=== PATIENT | female | born 1990 | race Caucasian/White ===

== ENCOUNTER 2021-12-12 06:17 | Inpatient (IN) ==
--- NOTE | 2021-12-02 16:17 | History and Physical Report ---
DATE OF NOTE: 12/02/2021. CHIEF COMPLAINT: Heavy vaginal bleeding with clotting, pelvic pain, severe dyspareunia. HISTORY OF PRESENT ILLNESS: The patient is a 31-year-old 3, para 3. She had a tubal ligatio n in 2014 for control. She has a history of heavy vaginal bleeding. Her periods come every 28 -30 days, they last 6+ days. She has heavy bleeding 5 days. During the heavy bleeding, she can soak a pad in under an hour or even soak 2 pads in under an hour and she has severe clotting. She also h as severe cramps with her period. They started just the days when she was having the bleeding, now s he gets a cramp several days before her period starts or several days after. The pain has been unresp onsive to nonnarcotic pain relievers. Due to the heavy bleeding and severe pelvic pain, she has miss ed numerous days of work, has difficulty leaving the house when she is bleeding due to the soaking th rough her pad. This has been present and getting worse for the past 6 months. She also has pain wit h intercourse, specifically pain on deep penetration. This has also been present for over 6 months, been getting increasingly worse and it is to the point where it causes her to avoid having intercours e due to the pain. She had a transvaginal ultrasound on 05/25/2021, it showed normal size ovaries, t hickened endometrial stripe. In 2019, she had a diagnostic laparoscopy, which revealed biopsy proven endometriosis, particularly on the right uterosacral ligament. Presently has been scheduled for tota l abdominal hysterectomy with preservation of both ovaries and suspension of the vaginal cuff. PAST MEDICAL HISTORY: She has 3 children in good health. ALLERGIES: ALLERGIC TO SULFA, WHICH GIVES HER HIVES. PAST SURGICAL HISTORY: She had a stat in 2019, she had tubal ligation in 2014 and she had a diagnostic laparoscopic D and C in 2019 which revealed endometriosis. SOCIAL HISTORY: She is a half a pack a day smoker for 18 years. No history of excessive alcohol int guillermo. She works at [employer]. FAMILY HISTORY: Her mom is 61, has elevated cholesterol. Father is 60, has thyroid disease and diab etes. She has 2 sisters in good health. REVIEW OF SYSTEMS: HEAD: No symptoms of frequent or severe headaches. EYES: No symptoms of blurred vision or double vision. EARS: No symptoms of frequent ear infection or difficulty hearing. NOSE: No symptoms of frequent nosebleeds or difficulty breathing through her nose. PHYSICAL EXAMINATION: GENERAL: Well-developed, well-nourished 31-year-old white female, alert, oriented x3, and cooperativ e, in no acute distress, appeared her stated age. EYES: Conjunctivae pink. Sclerae white, no evidence of jaundice. ENT: Ears had normal light reflex bilaterally. Nose had normal mucosa. Septum is midline. There w ere no polyps. Throat had no erythema or evidence of infection. Teeth are in good state of repair. HEAD: Normocephalic, normal distribution of hair. NECK: Supple. Trachea midline. Thyroid is not enlarged. There is no adenopathy appreciated. Both carotids are of good intensity. BREASTS: Normal. HEART: Had a regular rhythm. S1 and S2 are normal. There was an umbilical ring and she also had a well-healed Pfannenstiel scar. PELVIC: Revealed a normal-appearing cervix. Uterus was anteverted, top normal size. There were no adnexal masses appreciated. There was tenderness and nodularity of the uterosacral ligaments, especi ally on the patient's right side. MUSCULOSKELETAL: Revealed no calf tenderness. IMPRESSION OF THIS CASE: History of emergency for distress. History of tubal ligati on for control. Diagnostic laparoscopy revealing symptomatic endometriosis, hypermenorrhea and dyspareunia. Job ID: [id number]
--- NOTE | 2021-12-04 10:28 | PAT Medication Instructions ---
Medication Instructions Date of Service December 04, 2021 Home Medications Medication Instructions Recorded sumatriptan succinate 100 mg 100 mg PO .COMPLEX PRN #9 tab 05/19/21 tablet (Imitrex) sumatriptan succinate 100 mg tablet (Imitrex) 100 mg PO .COMPLEX PRN norethindrone acetate 5 mg tablet 5 mg PO QAM ASK your surgeon for instructions norethindrone acetate 5 mg tablet 5 mg PO QAM Take morning of surgery With a small sip of water, OTHERWISE NOTHING TO EAT OR DRINK AFTER MIDNIGHT: sumatriptan succinate 100 mg tablet (Imitrex) 100 mg PO .COMPLEX PRN (if needed) Take evening before surgery sumatriptan succinate 100 mg tablet (Imitrex) 100 mg PO .COMPLEX PRN (if needed) Other Notes If you have any questions please call us at [phone] or [phone] or [phone] or [phone]
--- NOTE | 2021-12-10 09:48 | Anesthesiology Consultation ---
Date of Service December 10, 2021 Assessment & Plan (1) Encounter for pre-operative examination: Chart Review Chart Review: Acceptable Risk for Surgery (pending preop Covid testing results ) and Patient seen in Pre Admission Testing -Pt had test done at [facility] appt on 12/10/21 = negative Per [facility] appt on 12/10/21, patient denies any recent travel or large group activities. No known Covid positive exposures or Covid related symptoms. No known Covid infection in the past 90 days. Pt is vaccinated for Covid. Preop Covid testing done at [facility] on 12/10/21= will await results. Educated on importance of self quarantining, social distancing and wearing mask in public for the patient one week prior to surgery and after Covid testing done Diagnostic laparoscopy 08/24/19= Done under [place] with Grade 1 view with MAC#3. ETT #6.5. Atraumatic x 1 Teaching & Discussion Pre-Anesthesia Teaching/Discussion Notes: Instructed NPO after midnight before surgery,except medications with 15 cc of water. Medication instructions provided according to the [facility] guidelines. History Surgery Operation Date: 12/12/21 12:00 Proposed Procedures p Total Abdominal Hysterectomy - Harvinder Sunshine MD Height/Weight Height: 5 ft 6 in Weight: 63.4 kg Allergies Allergy/AdvReac Type Severity Reaction Status Date / Time Sulfa (Sulfonamide Allergy Unknown HIVES TO Verified 12/02/21 16:34 Antibiotics) "SULFA DRUGS" Medications Home Medications Medication Instructions Recorded Confirmed Last Taken sumatriptan succinate 100 mg 100 mg PO .COMPLEX PRN #9 tab 05/19/21 12/02/21 Unknown tablet (Imitrex) norethindrone acetate 5 mg tablet 5 mg PO QAM 10/03/21 12/02/21 10/01/21 Past Medical History Medical History Depression No meds, patient reports well managed. Endometriosis GERD (gastroesophageal reflux disease) Well controlled, denies any issues laying flat History of COVID-19 11/2020; asymptomatic Migraine HX Neck pain Patient reports h/o herniated disc, denies cervicalgia since established care with chiropractor. Exercise / Class Metabolic Activity II 4-5 Yardwork/Stairs/Walk up hill (one flight of stairs - no chest pain or SOB ) Past Family History Family History Father Diabetes Hypothyroidism Mother Hypertension Dyslipidemia Past Surgical History Surgical History History of bilateral tubal ligation History of section History of laparoscopy Past Anesthesia History No Hx of Anesthesia Complications and No Family Hx of Anesthesia Complications History of PONV No Hx of PONV and No Hx of Motion Sickness Social History Smoking Status: Current every day smoker tobacco type: cigarettes Smoking cigarettes per day: 10-20 per day Do You Dip or Chew Tobacco: No Hx Alcohol Use: Yes Alcohol type: beer alcohol intake frequency: a few times a month Hx Substance Use: No substance use type: does not use Review of Systems Hx of snoring- no noted apnea- no hx of sleep study Patient denies chest pain, shortness of breath, dyspnea on exertion, cough, wheezing, palpitations. No hx of seizures, stroke, [place]. No hx of blood clots or blood transfusions Physical Exam Vital Signs VITALS BP 108/62 (manually) P 77 TEMP 98.2 SP02 95% RESP 16 Constitutional no acute distress ENMT Mouth: no TMJ clicking Thyromental Distance: < 3.5 Finger Breadths (3.0) Mallampati Class: I (smaller airway ) Metal bar to bottom front teeth Neck neck extension not limited Respiratory normal respiratory effort; no respiratory distress Auscultation: lungs clear to auscultation bilaterally; no wheezes Cardiovascular Rate/Rhythm: regular rate and regular rhythm Heart Sounds: no murmur Vessels: no carotid bruit Musculoskeletal Spine: no pain with cervical ROM Extremities: extremities normal to inspection Psychiatric Orientation: alert Lab Results Anesthesia Preop Results Results Anesthesia Widget: WBC 5.64 K/uL (4.8-10.8) 12/10/21 Hgb 14.1 g/dL (12.0-16.0) 12/10/21 Hct 41.7 % (37-47) 12/10/21 Plt 262 K/uL (130-400) 12/10/21 Na 139 mmol/L (136-145) 12/10/21 K 4.0 mmol/L (3.5-5.1) 12/10/21 Cl 105 mmol/L (98-107) 12/10/21 CO2 31 mmol/L (21-32) 12/10/21 BUN 11 mg/dl (6-23) 12/10/21 Creat 0.66 mg/dl (0.6-1.2) 12/10/21 Glucose Level 56 mg/dl (70-99(Fasting)) L 12/10/21 PT 10.7 Seconds (9.0-12.0) 12/10/21 PTT 27.3 Seconds (21.0-31.0) 12/10/21 INR 1.0 (0.9-1.1) 12/10/21 Urine Test Negative (Negative) 12/10/21 Blood Type A Positive 12/10/21 Antibody Screen NEGATIVE 12/10/21 Testing Other Testing Cervical CT scan 05/16/21= No acute bony abnormality is seen involving the cervical spine. There is no CT evidence of central canal stenosis or significant neural foraminal narrowing.
[~2021-12-12 06:17] MED LIST: LR 15ML/HR IV SCH; cefOXitin 2,000 MG in DEXTROSE 5% 50 ML IV SCH
[2021-12-12] MEDS ORDERED: DEXAMETHASONE SOD INJ 4 MG/ML VIAL ONE (06:56)
[2021-12-12] MEDS ORDERED: LIDOCAINE 2% 2 ML VIAL/AMP(20MG/ML) INFIL ONE (06:56)
[2021-12-12] MEDS ORDERED: ONDANSETRON INJ 2 MG/ML 2 ML VIAL ONE ×2 (06:56→10:04)
[2021-12-12] MEDS ORDERED: fentaNYL citrate 100 MCG/2 ML VIAL ONE (06:56)
[2021-12-12] MEDS ORDERED: ROCURONIUM BROMIDE 10 MG/ML 5 ML VIAL IV ONE ×2 (06:56→09:37)
[2021-12-12] MEDS ORDERED: MIDAZOLAM HCL 1 MG/ML 2ML VIAL ONE (06:56)
[2021-12-12] MEDS ORDERED: PROPOFOL IV EMULSION 10 MG/ML 20 ML VIAL IV ONE (06:56)
[2021-12-12] MEDS ORDERED: BUPIVACAINE 0.5 % 5 MG/1 ML PF 10ML VIAL ONE (07:05)
[2021-12-12] MEDS ORDERED: MoRPHine SULFATE PF 1 MG/ML 10 ML AMP/VIAL ONE (07:37)
[2021-12-12] MEDS ORDERED: SCOPOLAMINE 1 MG TDSY TD ONE (07:38)
--- NOTE | 2021-12-12 07:42 | History & Physical Bridge Note ---
Date of Service December 12, 2021 History & Physical Bridge Note I have examined the patient, reviewed the History & Physical and in the interval since the performance of the History & Physical I have noted the following changes of clinical significance: no changes noted
[2021-12-12] MEDS ORDERED: MoRPHine SULFATE PF 1 MG/ML 10 ML AMP/VIAL INT SPINAL ONE (08:04)
[2021-12-12] MEDS ORDERED: NALOXONE HCL 0.4 MG/1 ML VIAL/CARP IV PRN (08:04)
[2021-12-12] MEDS ORDERED: ePHEDrine sulfate 50 MG/ML AMP IV PRN ×2 (08:04→10:51)
[2021-12-12] MEDS ORDERED: ONDANSETRON INJ 2 MG/ML 2 ML VIAL IV PRN ×2 (08:04→10:51)
[2021-12-12] MEDS ORDERED: NALOXONE HCL 1 MG in SODIUM CHLORIDE 0.9% 1000ML 1,000 ML IV PRN (08:04)
[2021-12-12] MEDS ORDERED: diphenhydrAMINE 50 MG/ML VIAL IV PRN (08:04)
[2021-12-12] MEDS ORDERED: NALBUPHINE HCL INJ 10 MG/ML AMP IV PRN (08:04)
[2021-12-12] MEDS ORDERED: NALOXONE HCL 0.08 MG in SYRINGE 1.8 ML IV PRN (08:04)
[2021-12-12] MEDS ORDERED: LACTATED RINGER'S 500 ML IV PRN (08:04)
[2021-12-12] MEDS ORDERED: HEPARIN (PORCINE) 1000 UNIT/ML 10 ML (CATH LAB USE ONLY) ONE (08:05)
[2021-12-12] MEDS ORDERED: DC INTRASPINAL MORPHINE SCH (08:15)
[2021-12-12] MEDS ORDERED: SODIUM CHLORIDE 0.9% 1000ML 1,000 ML IV SCH (08:15)
[2021-12-12] MEDS ORDERED: NO NARCOTICS OR SEDATIVES SCH (08:15)
[2021-12-12] MEDS ORDERED: KETAMINE 50 MG/5 ML SYRINGE ONE (08:54)
[2021-12-12] MEDS ORDERED: KETOROLAC 30 MG/ML VIAL ONE (10:04)
[2021-12-12] MEDS ORDERED: NEOSTIGMINE METHYLSULFATE 1 MG/ML 10ML VIAL ONE (10:20)
[2021-12-12] MEDS ORDERED: GLYCOPYRROLATE 0.2 MG/ML VIAL ONE (10:20)
--- NOTE | 2021-12-12 10:30 | Post Operative Brief Note ---
Immediate Post Op Note v1 Date of Surgery December 12, 2021 Pre & Post Diagnosis Operation Date: 12/12/21 08:00 Pre-Op Diagnosis: symptomatic endometriosis, hypermenorrhea and dyspareunia Post-Op Diagnosis: symptomatic endometriosis, hypermenorrhea and dyspareunia I identified the patient and participated in the time-out.: Yes Procedure Operation Date: 12/12/21 08:00 Actual Procedures p Total Abdominal Hysterectomy(Not Applicable) - Harvinder Sunshine MD suspension of vaginal cuff Surgeon Harvinder Sunshine MD Grounds Crew Supervisor none Estimated Blood Loss 150 Findings Consistent with Post-Op Diagnosis Drains Mercer Catheter and Justus Drain (1 justus drain and 1 safety pin remains in patient per surgeon.) Anesthesia Type General/Epidural Complications none Disposition Disposition: Recovery Room
[2021-12-12] MEDS ORDERED: ATROPINE SULFATE 0.1 MG/ML 10ML SYR IV PRN (10:51)
[2021-12-12] MEDS ORDERED: ACETAMINOPHEN 1000 MG/100 ML IV IV ONE (10:52)
[2021-12-12] MEDS ORDERED: ACETAMINOPHEN 1,000 MG/100 ML VIAL IV STA (10:53)
[2021-12-12] MEDS: HYDROmorphone INJ 1 MG/ML SYRINGE IV PRN ×2 (10:54→11:06)
[2021-12-12] MEDS: fentaNYL citrate 100 MCG/2 ML VIAL IV PRN ×3 (11:11→11:24)
--- NOTE | 2021-12-12 12:23 | Anesthesiology Progress Note ---
Date of Service December 12, 2021 Anesthesia Post Procedure Vital Signs Vital Signs: Temp Pulse Pulse Resp BP BP Pulse Ox 12/12/21 12:00 60 14 116/69 94 12/12/21 11:50 61 15 129/66 94 12/12/21 11:40 36.6 C 65 12 117/58 L 95 12/12/21 11:30 56 L 13 119/65 100 12/12/21 11:20 49 L 14 131/74 100 12/12/21 11:10 49 L 12 129/67 100 12/12/21 11:00 48 L 16 129/64 100 12/12/21 10:50 48 L 15 118/79 100 12/12/21 10:41 36.2 C L 64 16 123/66 100 12/12/21 06:57 36.9 C 66 18 114/58 L 98 Pain Intensity Lower Abdomen: Pain Intensity: 3 Transfer of Care Handoff Completed per policy Notes Mental Status: alert / awake / arousable and participated in evaluation Patient Amnestic to Procedure: Yes Nausea / Vomiting: adequately controlled Pain: adequately controlled Airway Patency, RR, SpO2: stable & adequate BP & HR: stable & adequate Hydration State: stable & adequate Anesthetic Complications: no major complications apparent and Pt Satisfied with anesthetic care
--- NOTE | 2021-12-12 12:28 | Operative Report (OR) ---
PROCEDURE: Total abdominal hysterectomy, suspension of vaginal cuff. INDICATION FOR SURGERY: Hypermenorrhea, dyspareunia, pelvic pain, previous laparoscopic diagnosis of endometriosis. SURGEON: Carlos Sunshine MD ESTIMATED BLOOD LOSS: 150 mL. ANESTHESIA: General with spinal narcotics. CHIEF DATA OFFICER: assistant corporation counsel. OPERATIVE FINDING AND PROCEDURE: The patient was brought to the OR table, correctly identified by evin perdomo and conversation. General anesthesia was administered. Compression stockings were applied. T he vagina was prepped with a Betadine solution. Mercer catheter was inserted aseptically in the [facility] er, connected to gravity drainage. Lower abdomen was painted with an alcohol based sterilizing solut ion. A Pfannenstiel incision was made through a previous scar and was carried down to the anterior f ascia by sharp dissection. Hemostasis was secured by electrocauterization. Fascia was incised trans versely, from the underlying muscle by blunt and sharp dissection. Recti muscles were sepa rated in the midline, exposing the peritoneum, which was carefully raised and entered. An O'Torsten-O 'Tee self-retraining retractor was inserted into the incision and 5 laparotomy packs were used t o retract the intestines and provide adequate exposure of the pelvic cavity. The uterus was grasped with a double tooth tenaculum. The round ligaments on either side were suture ligated with a chromic gut tag and then beyond that they were ligated with a silk suture. They were grasped proximally wit daniel Lei and then they were cut. Incision was made above the vesicouterine fold and the bladder was advanced out of the operative field. The posterior leaves of the broad ligament were first punched through bluntly on the left side, and this isolated the ovarian ligament and tube. They were clamped proximally and distally, cut, and then the distal stumps were doubly ligated with a chromic gut tag and also tagged with a chromic. This was also done on the right side, clamping proximally and distal ly and doubly ligating the stumps. The bladder was advanced off the operative field. The uterine ve ssels were clamped at the upper portion of the cervix where the uterus and the cervix met, these were doubly clamped with a curved Fred, cut, and then doubly suture ligated with chromic gut suture. B ladder was continually advanced out of the field. A curved Fred was used to slide off the cardinal ligaments, cut with a stump, and ligate the cardinal ligaments and also religate the stump to the ut erine vessels. This was done in 2 steps because of the length of the cardinal ligament. Then I used an electrocautery to shell the cervix out and thus remove the specimen consisting of uterus and cerv ix. I then suture ligated the angles of the vaginal cuff to the stumps of the cardinal ligament on b oth the right and left side. I then approximated the vaginal mucosa front to back with a figure-of-e ight suture of chromic catgut on each side. The proximal bites were in the cardinal ligaments on eit her side and that approximated the vaginal mucosa and further supported the cuff to the stumps of the cardinal ligaments. The mid portion was then whipstitched open with a continuous chromic gut suture . I had a little bit of bleeding from underneath the bladder and I had to double suture the top part of it. I then placed a Dave drain with a safety pin into the cuff, I checked for hemostasis. I then grabbed the middle of the posterior cuff, and I did a reuqbj-my-jnudt suture of Vicryl, which ap proximated the uterosacral ligaments and added additional support to the cuff. Following this, I bro ught the round ligaments down and tied them into the stumps of the cardinal ligaments on either side. I then approximated the peritoneum bearing the stumps on either side, approximated the peritoneum b earing all the stumps on the right side to the middle and then started on the left side and went to t he middle and then tied the 2 sutures together. At this point in time, the peritoneum was carefully approximated. Hemostasis now was excellent. I washed everything out. There was no additional bleed ing. I placed the Dave drain in the cul-de-sac. I then carefully did an anatomical approximation after removing the 5 packs and the O'Torsten-O'Tee self-retaining retractor. I did visualize th e appendix at this time, it was normal. I then approximated the peritoneum with a continuous running chromic gut suture. I approximated the recti muscles with interrupted muqbxn-ty-oqmrx suture chromi c catgut. I approximated the fascia with a continuous interlocking suture of Vicryl on each side tie d in the midline. Subcutaneous was approximated with a running plain. The skin edges were approxima sia with staple clips. The patient tolerated the procedure well and left the OR in good condition. Job ID: [id number]
[2021-12-12] MEDS ORDERED: bisacodyL 10 MG SUPP PR PRN (12:46)
[2021-12-12] MEDS ORDERED: SENNA 8.6 MG TAB PO PRN (12:46)
[2021-12-12] MEDS: HYDROmorphone INJ 0.5 MG/0.5 ML SYR IV PRN ×2 (15:48→20:30)
[2021-12-12] MEDS: D5W AND LACTATED RINGERS 1,000 ML IV SCH (20:30)
[2021-12-13] MEDS: HYDROmorphone INJ 0.5 MG/0.5 ML SYR IV PRN (01:32)
[2021-12-13] MEDS ORDERED: MEPERIDINE HCL 50 MG/ML CARP IV PRN (02:04)
[2021-12-13] MEDS: D5W AND LACTATED RINGERS 1,000 ML IV SCH (04:17)
[2021-12-13] MEDS: KETOROLAC 30 MG/ML VIAL IV PRN ×2 (04:22→11:03)
[2021-12-13 06:28] LABS: Hematocrit (blood only) 34.1 % (37-47); Hemoglobin 11.7 g/dL (12.0-16.0)
[2021-12-13] MEDS: MAGNESIUM HYDROXIDE SUSP 30 ML UDC PO PRN (08:30)
--- NOTE | 2021-12-13 10:37 | Obstetrical Progress Note ---
Date of Service December 13, 2021 Assessment & Plan Admission and Anticipated Discharge Date Admission Date: December 12, 2021 Subjective abdomen soft and non tender passing flatus no calf tenderness bandage removed incision is clean and dry vaginal bleeding scant hgb 11.7 Results & Data ([facility]) Vital Signs (Past 12 Hours) Vital Signs Temp Pulse Resp BP Pulse Ox 12/13/21 07:35 36.9 C 52 L 16 102/63 100 12/13/21 03:22 36.9 C 54 L 16 112/72 98 12/13/21 02:00 16 97 12/13/21 01:30 18 100 12/13/21 00:30 16 97 12/12/21 23:30 18 97 12/12/21 23:15 16 97 12/12/21 23:08 36.7 C 55 L 16 104/63 100
[2021-12-13] MEDS: oxyCODONE/ACETAMINOPHEN 5mg/325mg TAB PO PRN ×3 (16:05→23:35)
[2021-12-13] MEDS: IBUPROFEN 600 MG TAB PO PRN ×2 (19:32→23:36)
[2021-12-14] MEDS: oxyCODONE/ACETAMINOPHEN 5mg/325mg TAB PO PRN ×2 (06:09→11:43)
[2021-12-14] MEDS: IBUPROFEN 600 MG TAB PO PRN ×2 (06:10→11:44)
[2021-12-14] MEDS: MAGNESIUM HYDROXIDE SUSP 30 ML UDC PO PRN (08:38)
--- NOTE | 2021-12-14 11:40 | Obstetrical Progress Note ---
Date of Service December 14, 2021 Assessment & Plan Admission and Anticipated Discharge Date Admission Date: December 12, 2021 Subjective abdomen soft and non tender incision is clean and dry passing flatus ambulating well no calf tenderness pain is well controlled vaginal bleeding scant hgb 11.7 Results & Data ([facility]) Vital Signs (Past 12 Hours) Vital Signs Temp Pulse Pulse Resp BP Pulse Ox 12/14/21 10:53 36.7 C 60 80 16 110/69 100 12/14/21 08:25 36.7 C 80 16 110/69 100 12/14/21 03:45 36.4 C L 51 L 16 98/60 L 12/13/21 22:55 36.8 C 55 L 16 111/66 98
--- NOTE | 2021-12-14 18:20 | Discharge Summary (DS) ---
DATE OF DISCHARGE: 12/14/2021. She came in with complaints of heavy vaginal bleeding with clotting, pelvic pain, severe dyspareunia, dysmenorrhea. A 31-year-old 3, para 3, tubal ligation in 2014 for control. History of heavy vaginal bleeding. Period is coming every 28-30 days, they last 7 days. She bleeds heavy 5 da ys. She can soak over a pad an hour. She is unable to leave the house during this time. In the [facility] t, she had a D and C diagnostic laparoscopy, it indicated that she had endometriosis due to COVID. W e had difficulty getting her into surgery, so she was placed on norethindrone 5 mg a day to stop the bleeding, control the pain with the endometriosis. On day of admission, she was taken to the OR. She received prophylactic antibiotics. She then underwent a total abdominal hysterectomy with preservat ion of both ovaries and suspension of the vaginal cuff. Postoperatively, the patient did well. Her first postoperative hemoglobin was 11.7. She remained afebrile throughout her postoperative stay. H er bowel sounds returned within the first 24 hours. At the time of discharge, she was ambulating wel l, eating well. Incision was clean and dry. Bleeding was minimal and her pain was controlled with a combination of Percocet and Motrin. She was given a prescription for Percocet to take when she is h ome, told to return in about a week for removal of hammad and to call if she had any problems with h eavy bleeding or pain or redness in the incision. Job ID: [id number]
== END 2021-12-14 12:30 | disposition home or self-care (01) | DRG 743 ==
LOC: ASU 06:17 → 4S2 10:48